=== PATIENT | female | born 1975 | race Caucasian/White ===

== ENCOUNTER 2017-10-26 19:59 | Observation (INO) | payer OTHER ==
[~2017-10-26] VITALS: Ht 167.6 cm; Wt 101.2 kg
[2017-10-26 20:44] LABS: HEMATOCRIT 24.3 % (36.0-46.0); HEMOGLOBIN 7.9 G/DL (11.9-15.5); MCHC 32.5 G/DL (30.0-36.0); MCV 89.3 FL (83-99); PLATELET COUNT 277 K/uL (156-360); RBC DIS.WIDTH-CV 14.1 % (11.8-14.6); RBC DIS.WIDTH-SD 45.6 % (39-53); RED BLOOD COUNT 2.72 M/uL (3.80-5.20); WHITE BLOOD COUNT 12.3 K/uL (4.1-10.2)
[2017-10-26 20:51] LABS: ALBUMIN 3.7 g/dL (3.2-4.8)
[2017-10-26 20:52] LABS: CHLORIDE 110 mEq/L (99-109); POTASSIUM 3.5 mEq/L (3.7-5.4); SODIUM 141 mEq/L (136-147)
[2017-10-26 20:54] LABS: GLUCOSE 169 mg/dL (70-99); TOTAL PROTEIN 5.9 g/dL (6.4-8.3)
[2017-10-26 20:56] LABS: TOTAL BILIRUBIN 0.2 mg/dL (0.0-1.0)
[2017-10-26 20:58] LABS: ALKALINE PHOSPHATASE 49 IU/L (3-129); CREATININE 0.8 mg/dL (0.6-1.3); GFR ESTIMATE (CALCULATED) > 59 mL/min/
[2017-10-26 20:59] LABS: AST (GOT) 12 IU/L (2-34); UREA NITROGEN (BUN) 16 mg/dL (9-23)
[2017-10-26 21:01] LABS: ALT (GPT) 17 IU/L (3-49)
[2017-10-26 21:06] LABS: QUANTITATIVE HCG < 4.0 MIU/ML
[2017-10-26 22:37] LABS: HEMATOCRIT 21.7 % (36.0-46.0); HEMOGLOBIN 7.1 G/DL (11.9-15.5); MCH 29.5 PG (29.0-34.0); MCHC 32.7 G/DL (30.0-36.0); PLATELET COUNT 206 K/uL (156-360); RBC DIS.WIDTH-CV 13.9 % (11.8-14.6); RBC DIS.WIDTH-SD 45.5 % (39-53); RED BLOOD COUNT 2.41 M/uL (3.80-5.20)
[2017-10-26] MEDS ORDERED: ADVIL,NUPRIN,M200 MG PO (23:07)
[2017-10-26 23:30] VITALS: BP 133/75
[2017-10-27 04:34] VITALS: BP 131/74
[2017-10-27 07:08] LABS: HEMATOCRIT 27.4 % (36.0-46.0); MCH 29.3 PG (29.0-34.0); MCHC 32.8 G/DL (30.0-36.0); MCV 89.3 FL (83-99); PLATELET COUNT 210 K/uL (156-360); RBC DIS.WIDTH-SD 45.2 % (39-53); WHITE BLOOD COUNT 10.5 K/uL (4.1-10.2)
[2017-10-27 07:16] LABS: RED BLOOD COUNT 3.07 M/uL (3.80-5.20)
[2017-10-27] MEDS ORDERED: MEDROXYPROGESTER5 MG PO (07:19)
[2017-10-27 12:18] VITALS: BP 138/65
[2017-10-27 15:50] VITALS: BP 128/66
[2017-10-27 19:13] VITALS: BP 140/66
[2017-10-28 00:28] VITALS: BP 135/65
[2017-10-28 03:50] VITALS: BP 132/68
[2017-10-28 06:46] LABS: BASOPHIL (%) 0.4 % (0-1); EOSINOPHIL (%) 0.4 % (0-5); HEMATOCRIT 24.3 % (36.0-46.0); IMMATURE GRANULOCYTE (%) 0.8 % (0.0-0.7); LYMPHOCYTE (%) 40.1 % (15-42); LYMPHOCYTE COUNT 3.1 K/uL (1.0-2.8); MCH 29.4 PG (29.0-34.0); MCHC 32.9 G/DL (30.0-36.0); MCV 89.3 FL (83-99); MONOCYTE COUNT 0.5 K/uL (0-0.8); NEUTROPHIL (%) 51.3 % (45-76); NEUTROPHIL COUNT 3.9 K/uL (1.8-6.4); PLATELET COUNT 206 K/uL (156-360); RBC DIS.WIDTH-CV 14.6 % (11.8-14.6); RBC DIS.WIDTH-SD 46.5 % (39-53); RED BLOOD COUNT 2.72 M/uL (3.80-5.20); WHITE BLOOD COUNT 7.7 K/uL (4.1-10.2)
[2017-10-28 07:39] VITALS: BP 131/67
[2017-10-28 11:13] VITALS: BP 125/69
== END 2017-10-28 16:30 | disposition home or self-care (01) ==
LOC: EME 19:59 → EDOF 10-27 01:31 → 2EASTP 10-27 01:31 → ENRESERV 10-27 01:37 → 2EASTP 10-27 04:01 → ENPENDDIS 10-28 → 2EASTP 10-28 16:30
PROVIDERS: Physician Assistant; Physician Assistant Medical; Student in an Organized Health Care Education/Training Program
PROC: 30233N1 Transfusion of Nonautologous Red Blood Cells into Peripheral Vein, Percutaneous Approach (ICD-10-PCS; principal; 2017-10-27)
DX: D64.9 Anemia, unspecified (principal); N92.0 Excessive and frequent menstruation with regular cycle; I95.1 Orthostatic hypotension; R00.0 Tachycardia, unspecified; E86.0 Dehydration; E28.2 Polycystic ovarian syndrome; Z79.891 Long term (current) use of opiate analgesic
CPT/HCPCS: 76856; 80053; 81003; 84702; 85025; 85027; 86850; 86900; 86901; 86920; G0378; J7030; P9016